=== PATIENT | male | born 1980 | race American Indian/Alaskan Native ===

== ENCOUNTER 2016-12-11 02:09 | Emergency (ER) | payer OTHER ==
[2016-12-11] MEDS ORDERED: CATAPRES PO ONE ×2 (07:32→08:30)
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
[2016-12-11] MEDS ORDERED: HCTZ PO ONE (08:30)
[2016-12-11] MEDS ORDERED: ZESTRIL PO ONE (08:30)
[2016-12-11 09:16] VITALS: BP 162/101
== END 2016-12-11 09:52 | disposition home or self-care (01) ==
LOC: ED 02:09
DX: S09.90XA Unspecified injury of head, initial encounter (principal); I10 Essential (primary) hypertension; F17.210 Nicotine dependence, cigarettes, uncomplicated; V89.2XXA Person injured in unspecified motor-vehicle accident, traffic, initial encounter; Y93.89 Activity, other specified; Y92.89 Other specified places as the place of occurrence of the external cause; Y99.8 Other external cause status
CPT/HCPCS: 70450; 99283